=== PATIENT | female | born 1970 | race African-American/Black ===

== ENCOUNTER 2021-11-03 00:43 | Emergency (ER) | payer MEDICAID, OTHER ==
[~2021-11-03] VITALS: Ht 162.6 cm; Wt 81.0 kg
[~2021-11-03 00:43] MED LIST: SYN150
[2021-11-03 00:50] VITALS: BP 160/88
== END 2021-11-03 05:54 | disposition left against medical advice (07) ==
LOC: ER 00:43
DX: Z53.21 Procedure and treatment not carried out due to patient leaving prior to being seen by health care provider (principal); I49.9 Cardiac arrhythmia, unspecified
CPT/HCPCS: 93005